=== PATIENT | female | born 1940 | race Caucasian/White ===

== ENCOUNTER 2018-04-15 13:32 | Emergency (ER) | payer MEDICARE, OTHER | END 2018-04-15 16:20 | disposition home or self-care (01) | LOC: FTE 13:32 | DX: E04.1 Nontoxic single thyroid nodule (principal); E11.9 Type 2 diabetes mellitus without complications; I10 Essential (primary) hypertension; Z79.84 Long term (current) use of oral hypoglycemic drugs | CPT/HCPCS: 76536; 99284-25 ==

== ENCOUNTER 2018-10-08 10:42 | Inpatient (IN) | payer MEDICARE, OTHER ==
[2018-10-08] MEDS: SOD CHLORIDE 0.9% 500 ML IV (13:00)
[2018-10-08] MEDS: DEXAMETHASONE 10 MG/ML 1 ML INJ IV (13:00)
[2018-10-08 13:02] LABS: ADD MAN DIFF? NO
[2018-10-08 13:03] LABS: WHITE BLOOD COUNT 15.4 10^3/ul (4.8-10.8)
[2018-10-08 13:03] LABS: ABNORMAL IP MESSAGE 1; BASOPHIL # 0.2 10^3/ul (0.0-0.1); EOSINOPHILS # 3.2 10^3/ul (0.0-0.5); EOSINOPHILS % 20.8 % (0.0-7.0); HEMATOCRIT 33.7 % (37.0-47.0); HEMOGLOBIN 10.4 g/dl (12.0-16.0); LYMPHOCYTES % 6.8 % (15.0-51.0); MEAN CORPUSCULAR HEMOGLOBIN 27.2 pg (29.0-33.0); MEAN CORPUSCULAR HGB CONC 30.9 g/dl (32.0-37.0); MEAN PLATELET VOLUME 10.4 fl (7.4-10.4); MONOCYTE # 0.5 10^3/ul (0.3-0.9); MONOCYTES % 3.1 % (0.0-11.0); NEUTROPHIL # 10.4 10^3/ul (1.6-7.5); NEUTROPHILS % 67.9 % (39.0-77.0); PLATELET COUNT 498 10^3/UL (140-415); RED BLOOD COUNT 3.83 10^6/ul (4.20-5.40); RED CELL DISTRIBUTION WIDTH 14.6 % (11.5-14.5)
[2018-10-08 13:09] LABS: POSITIVE DIFF @See below
[2018-10-08 13:21] LABS: ALANINE AMINOTRANSFERASE 12 IU/L (13-69); ALBUMIN 4.2 g/dl (3.3-4.9); ALBUMIN/GLOBULIN RATIO 1.05; ALKALINE PHOSPHATASE 79 IU/L (42-121); ANION GAP 15 (5-13); ASPARTATE AMINO TRANSFERASE 16 IU/L (15-46); BILIRUBIN,INDIRECT 0.3 mg/dl (0-1.1); BILIRUBIN,TOTAL 0.3 mg/dl (0.2-1.3); BLOOD UREA NITROGEN 29 mg/dl (7-20); CALCIUM 10.5 mg/dl (8.4-10.2); CARBON DIOXIDE 25 mmol/L (21-31); CHLORIDE 101 mmol/L (97-110); CREATININE 1.13 mg/dl (0.44-1.00); GLUCOSE 222 mg/dl (70-220); POTASSIUM 5.2 mmol/L (3.5-5.1); SODIUM 141 mmol/L (135-144); TOTAL PROTEIN 8.2 g/dl (6.1-8.1)
[2018-10-08 13:24] LABS: INR 1.04; PROTIME 13.7 Sec (11.9-14.9); PT RATIO 1.1
[2018-10-08 13:25] LABS: PARTIAL THROMBOPLASTIN TIME 32.1 Sec (23.0-35.0)
[2018-10-08 13:34] LABS: B-TYPE NATRIURETIC PEPTIDE 100 PG/ML (0-450)
[2018-10-08 13:37] LABS: TROPONIN-I 0.207 ng/ml (0.000-0.120)
[2018-10-08 13:38] LABS: FREE THYROXINE INDEX (Calc) 2.96 ug/ml (0.65-3.89); T3 UPTAKE 33.3 % (23.5-40.5); T4 (THYROXINE) 8.9 ug/dl (5.5-11.0)
[2018-10-08] MEDS: ASPIRIN 81 MG TAB PO (14:41)
[2018-10-08] MEDS ORDERED: NACL 0.9% 3 ML SYG IV (16:00)
[2018-10-08] MEDS ORDERED: hydrALAzine 20 MG INJ IV (16:00)
[2018-10-08] MEDS ORDERED: GLUCOSE GEL 15 GRAM TUBE PO ×2 (16:00)
[2018-10-08] MEDS ORDERED: GLUCAGON 1 MG INJ IM (16:00)
[2018-10-08] MEDS ORDERED: DOCUSATE SODIUM 100 MG CAP PO (16:00)
[2018-10-08] MEDS ORDERED: NITROGLYCERIN (SL) 0.4 MG TAB SL (16:00)
[2018-10-08] MEDS ORDERED: MAGNESIUM HYDROXIDE 30ML CUP PO (16:00)
[2018-10-08] MEDS ORDERED: HYDROCODONE/APAP (5/325) TAB PO (16:00)
[2018-10-08] MEDS ORDERED: GLUCOSE GEL 15 GRAM TUBE BUCCAL (16:00)
[2018-10-08] MEDS ORDERED: LORAZEPAM 2 MG INJ IV (16:00)
[2018-10-08] MEDS ORDERED: ALBUTEROL/IPRATROPIUM (NEB) 3 ML AMP HHN (16:00)
[2018-10-08] MEDS ORDERED: morphine 2 MG INJ IV (16:00)
[2018-10-08] MEDS ORDERED: DEXTROSE 50% 50 ML SYRINGE IV ×2 (16:00)
[2018-10-08] MEDS: SOD CHLORIDE 0.45% 1,000 ML IV (16:07)
[2018-10-08 16:19] LABS: FREE T4 (FREE THYROXINE) 1.53 ng/dl (0.85-1.93)
[2018-10-08] MEDS: INSULIN ASPART [NOVOLOG] 3 ML PEN SC ×2 (16:59→21:03)
[2018-10-08 17:10] LABS: LACTIC ACID 0.9 mmol/L (0.5-2.0)
[2018-10-08 17:29] LABS: CREATINE KINASE 25 IU/L (23-200)
[2018-10-08 17:42] LABS: CK INDEX 6.6; CK-MB 1.65 ng/ml (0.0-2.4)
[2018-10-08] MEDS: ENOXAPARIN 80 MG/0.8 ML SYG SC (18:52)
[2018-10-08] MEDS: ATORVASTATIN 80 MG TAB PO (19:30)
[2018-10-08] MEDS ORDERED: EPINEPHrine 10 MCG/1ml (10 ML SYG) IV (20:00)
[2018-10-08] MEDS ORDERED: ATROPINE 1 MG/10 ML SYRINGE (20:00)
[2018-10-08] MEDS: CALCIUM CARBONATE 1.25 GM TAB PO (20:55)
[2018-10-08] MEDS ORDERED: HEPARIN 5,000 UNIT/1 ML VIAL SC (21:00)
[2018-10-08] MEDS ORDERED: ATORVASTATIN 10 MG TAB PO (21:00)
[2018-10-08 23:08] LABS: CREATINE KINASE 24 IU/L (23-200)
[2018-10-08 23:18] LABS: CK INDEX 7.8; CK-MB 1.86 ng/ml (0.0-2.4)
[2018-10-08 23:24] LABS: TROPONIN-I 0.339 ng/ml (0.000-0.120)
[2018-10-09] MEDS: INSULIN ASPART [NOVOLOG] 3 ML PEN SC ×6 (01:57→20:04)
[2018-10-09] MEDS ORDERED: ACCU-CHEK XX (02:00)
[2018-10-09] MEDS: SOD CHLORIDE 0.45% 1,000 ML IV ×2 (05:26→18:13)
[2018-10-09 06:43] LABS: ADD MAN DIFF? NO
[2018-10-09 06:51] LABS: WHITE BLOOD COUNT 11.5 10^3/ul (4.8-10.8)
[2018-10-09 06:51] LABS: BASOPHILS % 0.3 % (0.0-2.0); EOSINOPHILS % 0.2 % (0.0-7.0); HEMOGLOBIN 9.3 g/dl (12.0-16.0); LYMPHOCYTES # 1.1 10^3/ul (0.8-2.9); LYMPHOCYTES % 9.5 % (15.0-51.0); MEAN CORPUSCULAR HEMOGLOBIN 27.5 pg (29.0-33.0); MEAN CORPUSCULAR VOLUME 88.8 fl (82.0-101.0); MEAN PLATELET VOLUME 10.5 fl (7.4-10.4); MONOCYTE # 0.6 10^3/ul (0.3-0.9); NEUTROPHIL # 9.7 10^3/ul (1.6-7.5); NEUTROPHILS % 84.3 % (39.0-77.0); PLATELET COUNT 464 10^3/UL (140-415); RED BLOOD COUNT 3.38 10^6/ul (4.20-5.40); RED CELL DISTRIBUTION WIDTH 14.5 % (11.5-14.5)
[2018-10-09 07:13] LABS: CREATINE KINASE 20 IU/L (23-200)
[2018-10-09 07:14] LABS: CHOLESTEROL 162 mg/dl (100-200)
[2018-10-09 07:14] LABS: CHOL/HDL RATIO 5.7 RATIO; HDL CHOLESTEROL 28 mg/dl (33-92); LDL CHOLESTEROL,CALCULATED 93 mg/dl; TRIGLYCERIDES 206 mg/dl (0-149)
[2018-10-09 07:16] LABS: ANION GAP 12 (5-13); BLOOD UREA NITROGEN 33 mg/dl (7-20); CALCIUM 9.8 mg/dl (8.4-10.2); CARBON DIOXIDE 24 mmol/L (21-31); CHLORIDE 105 mmol/L (97-110); CREATININE 0.88 mg/dl (0.44-1.00); GLUCOSE 135 mg/dl (70-220); MAGNESIUM 1.5 mg/dl (1.7-2.5); PHOSPHORUS 4.8 mg/dl (2.5-4.9); SODIUM 141 mmol/L (135-144)
[2018-10-09 07:25] LABS: CK INDEX 7.3; CK-MB 1.45 ng/ml (0.0-2.4); TROPONIN-I 0.209 ng/ml (0.000-0.120)
[2018-10-09 07:45] LABS: THYROID STIMULATING HORMONE 0.884 MIU/L (0.465-4.680)
[2018-10-09] MEDS: ENOXAPARIN 80 MG/0.8 ML SYG SC ×2 (08:47→20:14)
[2018-10-09] MEDS: FAMOTIDINE 20 MG TAB PO (08:49)
[2018-10-09] MEDS: ASPIRIN (EC) 325 MG TAB PO (08:49)
[2018-10-09] MEDS: CALCIUM CARBONATE 1.25 GM TAB PO ×2 (08:49→20:05)
[2018-10-09] MEDS: AMLODIPINE 10 MG TAB PO (08:49)
[2018-10-09] MEDS: MAGNESIUM SULFATE 2 GM/50 ML 50 ML IVPB (13:37)
[2018-10-09 14:26] LABS: IRON 27 ug/dl (35-150)
[2018-10-09 14:35] LABS: % IRON SATURATION 10 % SAT (22-52); TOTAL IRON BINDING CAPACITY 278 ug/dl (241-421)
[2018-10-09] MEDS: REGADENOSON 0.4 MG/5 ML SYG (17:00)
[2018-10-09] MEDS: ATORVASTATIN 80 MG TAB PO (20:04)
[2018-10-09 20:12] LABS: HEPATITIS C VIRAL ANTIBODY NEGATIVE (NEGATIVE)
[2018-10-10] MEDS: INSULIN ASPART [NOVOLOG] 3 ML PEN SC ×6 (00:10→20:52)
[2018-10-10] MEDS: SOD CHLORIDE 0.45% 1,000 ML IV (00:13)
[2018-10-10 06:47] LABS: ADD MAN DIFF? NO
[2018-10-10 06:51] LABS: WHITE BLOOD COUNT 11.6 10^3/ul (4.8-10.8)
[2018-10-10 06:51] LABS: ABNORMAL IP MESSAGE 1; BASOPHIL # 0.1 10^3/ul (0.0-0.1); BASOPHILS % 0.7 % (0.0-2.0); EOSINOPHILS # 2.3 10^3/ul (0.0-0.5); HEMATOCRIT 30.2 % (37.0-47.0); HEMOGLOBIN 9.4 g/dl (12.0-16.0); LYMPHOCYTES # 1.1 10^3/ul (0.8-2.9); LYMPHOCYTES % 9.1 % (15.0-51.0); MEAN CORPUSCULAR HEMOGLOBIN 27.3 pg (29.0-33.0); MEAN CORPUSCULAR HGB CONC 31.1 g/dl (32.0-37.0); MEAN CORPUSCULAR VOLUME 87.8 fl (82.0-101.0); MEAN PLATELET VOLUME 10.5 fl (7.4-10.4); MONOCYTE # 0.6 10^3/ul (0.3-0.9); MONOCYTES % 5.2 % (0.0-11.0); NEUTROPHIL # 7.5 10^3/ul (1.6-7.5); NEUTROPHILS % 64.7 % (39.0-77.0); PLATELET COUNT 466 10^3/UL (140-415); RED BLOOD COUNT 3.44 10^6/ul (4.20-5.40); RED CELL DISTRIBUTION WIDTH 14.5 % (11.5-14.5)
[2018-10-10 06:52] LABS: POSITIVE DIFF @See below
[2018-10-10 07:16] LABS: ANION GAP 10 (5-13); BLOOD UREA NITROGEN 24 mg/dl (7-20); CALCIUM 9.8 mg/dl (8.4-10.2); CARBON DIOXIDE 24 mmol/L (21-31); CHLORIDE 103 mmol/L (97-110); CREATININE 0.84 mg/dl (0.44-1.00); GLUCOSE 155 mg/dl (70-220); POTASSIUM 3.9 mmol/L (3.5-5.1); SODIUM 137 mmol/L (135-144)
[2018-10-10] MEDS: ASPIRIN (EC) 325 MG TAB PO (08:30)
[2018-10-10] MEDS: FAMOTIDINE 20 MG TAB PO (08:31)
[2018-10-10] MEDS: AMLODIPINE 10 MG TAB PO (08:31)
[2018-10-10] MEDS: ONDANSETRON 4 MG INJ IV (08:31)
[2018-10-10] MEDS: CALCIUM CARBONATE 1.25 GM TAB PO ×2 (08:32→20:39)
[2018-10-10] MEDS: ENOXAPARIN 80 MG/0.8 ML SYG SC (09:45)
[2018-10-10] MEDS: ACETAMINOPHEN 325 MG TAB PO (14:11)
[2018-10-10] MEDS: INSULIN GLARGINE [LANTus] (100 UNITS/ML) SYG SC (14:52)
[2018-10-10] MEDS: NORepinephrine 8MG/250 ML (PMX 250 ML IV (16:00)
[2018-10-10] MEDS ORDERED: NORepinephrine 8MG/250 ML (PMX 250 ML IV (16:00)
[2018-10-10] MEDS ORDERED: NORepinephrine 8MG/250 ML (PMX 250 ML (16:12)
[2018-10-10 17:05] LABS: AADO2 Arterial 424.4 mmHg (7.0-24.0); Arterial Base Excess -5.6 mmol/L (-3.0-3); Arterial Blood Gas Oxygen Sat 99.2 mmHG (95.0-100.0); Arterial COHb 0.3 % (0.0-3.0); Arterial Fraction of Oxyhgb 98.8 % (93.0-99.0); Arterial HCO3 20.6 mmol/L (22.0-26.0); Arterial MetHb 0.1 % (0.0-1.5); Arterial pCO2 42.9 mmhg (35-45); MODE VENT - AC; Site Right Brachial
[2018-10-10] MEDS: SOD CHLORIDE 0.9% 1,000 ML IV (17:14)
[2018-10-10 17:23] LABS: ADD UMIC YES; UR ASCORBIC ACID NEGATIVE (NEGATIVE); UR BACTERIA FEW /HPF (NONE SEEN); UR BILIRUBIN (Dip) NEGATIVE (NEGATIVE); UR BLOOD (Dip) 1+ mg/dL (NEGATIVE); UR CLARITY SLIGHTLY CLOUDY (CLEAR); UR COLOR YELLOW (YELLOW); UR GLUCOSE (Dip) 3+ mg/dL (NEGATIVE); UR KETONES (Dip) 1+ mg/dL (NEGATIVE); UR LEUKOCYTE ESTERASE (Dip) TRACE Leu/ul (NEGATIVE); UR NITRITE (Dip) NEGATIVE (NEGATIVE); UR RBC 4 /HPF (0-5); UR SQUAMOUS EPITHELIAL CELL FEW /HPF (FEW); UR TOTAL PROTEIN (Dip) 1+ mg/dl (NEGATIVE); UR UROBILINOGEN (Dip) NEGATIVE (NEGATIVE); UR WBC 11 /HPF (0-5)
[2018-10-10 17:31] LABS: PHOSPHORUS 5.9 mg/dl (2.5-4.9)
[2018-10-10 17:31] LABS: CREATINE KINASE 38 IU/L (23-200)
[2018-10-10 17:40] LABS: CK INDEX 1.6
[2018-10-10 17:44] LABS: TROPONIN-I 0.038 ng/ml (0.000-0.120)
[2018-10-10 18:14] LABS: ANION GAP 14 (5-13); BLOOD UREA NITROGEN 21 mg/dl (7-20); CALCIUM 7.9 mg/dl (8.4-10.2); CARBON DIOXIDE 17 mmol/L (21-31); CHLORIDE 108 mmol/L (97-110); GLUCOSE 300 mg/dl (70-220); POTASSIUM 3.8 mmol/L (3.5-5.1); SODIUM 139 mmol/L (135-144)
[2018-10-10] MEDS: ATROPINE 1 MG/10 ML SYRINGE IV (18:34)
[2018-10-10] MEDS: DOCUSATE SODIUM 100 MG CAP PO (20:39)
[2018-10-10] MEDS: ATORVASTATIN 40 MG TAB PO (20:39)
[2018-10-11 00:04] LABS: CREATINE KINASE 36 IU/L (23-200)
[2018-10-11 00:14] LABS: CK INDEX 3.3; CK-MB 1.19 ng/ml (0.0-2.4)
[2018-10-11] MEDS: INSULIN ASPART [NOVOLOG] 3 ML PEN SC ×6 (01:52→21:29)
[2018-10-11] MEDS: NORepinephrine 8MG/250 ML (PMX 250 ML IV ×3 (04:31→21:06)
[2018-10-11 05:11] LABS: ADD MAN DIFF? NO
[2018-10-11 05:20] LABS: BASOPHILS % 0.2 % (0.0-2.0); EOSINOPHILS # 0.1 10^3/ul (0.0-0.5); EOSINOPHILS % 0.4 % (0.0-7.0); HEMATOCRIT 28.7 % (37.0-47.0); HEMOGLOBIN 8.8 g/dl (12.0-16.0); LYMPHOCYTES % 7.3 % (15.0-51.0); MEAN CORPUSCULAR HEMOGLOBIN 27.2 pg (29.0-33.0); MEAN CORPUSCULAR HGB CONC 30.7 g/dl (32.0-37.0); MEAN CORPUSCULAR VOLUME 88.6 fl (82.0-101.0); MEAN PLATELET VOLUME 10.7 fl (7.4-10.4); MONOCYTE # 0.5 10^3/ul (0.3-0.9); MONOCYTES % 3.6 % (0.0-11.0); NEUTROPHIL # 11.7 10^3/ul (1.6-7.5); NEUTROPHILS % 88.1 % (39.0-77.0); PLATELET COUNT 577 10^3/UL (140-415); RED BLOOD COUNT 3.24 10^6/ul (4.20-5.40); RED CELL DISTRIBUTION WIDTH 14.3 % (11.5-14.5)
[2018-10-11 05:20] LABS: WHITE BLOOD COUNT 13.2 10^3/ul (4.8-10.8)
[2018-10-11 05:38] LABS: ANION GAP 14 (5-13); BLOOD UREA NITROGEN 33 mg/dl (7-20); CALCIUM 9.5 mg/dl (8.4-10.2); CARBON DIOXIDE 23 mmol/L (21-31); CHLORIDE 103 mmol/L (97-110); CREATININE 1.53 mg/dl (0.44-1.00); GLUCOSE 194 mg/dl (70-220); POTASSIUM 4.5 mmol/L (3.5-5.1); SODIUM 140 mmol/L (135-144)
[2018-10-11] MEDS: SOD CHLORIDE 0.9% 1,000 ML IV (05:45)
[2018-10-11 05:46] LABS: MAGNESIUM 1.6 mg/dl (1.7-2.5)
[2018-10-11 05:47] LABS: CREATINE KINASE 77 IU/L (23-200)
[2018-10-11 05:50] LABS: CK INDEX 1.9; CK-MB 1.44 ng/ml (0.0-2.4)
[2018-10-11] MEDS: LACTATED RINGER'S 500 ML IV (07:00)
[2018-10-11 07:31] LABS: AADO2 Arterial 282.5 mmHg (7.0-24.0); Allen Test ACCEPTAB; Arterial Base Excess -3.6 mmol/L (-3.0-3); Arterial COHb 0.3 % (0.0-3.0); Arterial Fraction of Oxyhgb 96.5 % (93.0-99.0); Arterial HCO3 21.2 mmol/L (22.0-26.0); Arterial MetHb 0.2 % (0.0-1.5); Arterial pCO2 37.6 mmhg (35-45); MODE VENT - AC; Site Right Radial
[2018-10-11] MEDS: INSULIN GLARGINE [LANTus] (100 UNITS/ML) SYG SC (08:00)
[2018-10-11] MEDS: CALCIUM CARBONATE 1.25 GM TAB PO ×2 (08:11→20:59)
[2018-10-11] MEDS: DOCUSATE SODIUM 100 MG CAP PO ×2 (08:11→20:59)
[2018-10-11] MEDS: AMLODIPINE 10 MG TAB PO (08:11)
[2018-10-11] MEDS: ENOXAPARIN 80 MG/0.8 ML SYG SC (08:14)
[2018-10-11] MEDS: FAMOTIDINE 20 MG TAB PO (08:15)
[2018-10-11] MEDS: ASPIRIN (EC) 325 MG TAB PO (08:15)
[2018-10-11] MEDS: HYDROCORTISONE 100 MG INJ IV ×3 (12:00→21:26)
[2018-10-11] MEDS: MAGNESIUM SULFATE 2 GM/50 ML 50 ML IVPB (12:01)
[2018-10-11] MEDS: NPH, HUMAN INSULIN ISOPHANE 3ML VIAL SC ×3 (12:29→21:29)
[2018-10-11 12:46] LABS: THYROID MICROSOMAL ANTIBODY <1 IU/mL (<9)
[2018-10-11] MEDS: SOD FERRIC GLUC COMPLX 125 MG in SOD CHLORIDE 0.9% 100 ML IVPB (15:00)
[2018-10-11] MEDS ORDERED: ACETAMINOPHEN 325 MG TAB GTB (16:00)
[2018-10-11] MEDS: ACETAMINOPHEN 650MG/20.3ML CUP GTB ×2 (16:14→21:35)
[2018-10-11] MEDS: SOD CHLORIDE 0.45% 1,000 ML IV (17:04)
[2018-10-11] MEDS: ATORVASTATIN 40 MG TAB PO (20:59)
[2018-10-11 21:40] LABS: LACTIC ACID 1.2 mmol/L (0.5-2.0)
[2018-10-11 21:46] LABS: SODIUM,URINE RANDOM < 13 mmol/L (30-90)
[2018-10-11 21:47] LABS: CREATININE,URINE RANDOM 100.59 mg/dl (20-320); PROTEIN/CREAT RATIO 0.31 RATIO
[2018-10-12] MEDS: INSULIN ASPART [NOVOLOG] 3 ML PEN SC ×6 (00:43→20:33)
[2018-10-12] MEDS: SOD CHLORIDE 0.9% 100 ML (01:42)
[2018-10-12] MEDS: IOHEXOL 300MG/ML 150 ML BTL (01:42)
[2018-10-12 05:10] LABS: ADD MAN DIFF? NO
[2018-10-12 05:15] LABS: BASOPHILS % 0.2 % (0.0-2.0); EOSINOPHILS % 0.1 % (0.0-7.0); HEMATOCRIT 23.3 % (37.0-47.0); HEMOGLOBIN 7.1 g/dl (12.0-16.0); LYMPHOCYTES # 1.5 10^3/ul (0.8-2.9); LYMPHOCYTES % 11.5 % (15.0-51.0); MEAN CORPUSCULAR HEMOGLOBIN 27.3 pg (29.0-33.0); MEAN CORPUSCULAR HGB CONC 30.5 g/dl (32.0-37.0); MEAN CORPUSCULAR VOLUME 89.6 fl (82.0-101.0); MEAN PLATELET VOLUME 10.7 fl (7.4-10.4); MONOCYTE # 0.8 10^3/ul (0.3-0.9); MONOCYTES % 6.3 % (0.0-11.0); NEUTROPHIL # 10.4 10^3/ul (1.6-7.5); NEUTROPHILS % 81.7 % (39.0-77.0); PLATELET COUNT 396 10^3/UL (140-415); RED CELL DISTRIBUTION WIDTH 14.8 % (11.5-14.5)
[2018-10-12 05:15] LABS: WHITE BLOOD COUNT 12.7 10^3/ul (4.8-10.8)
[2018-10-12 05:36] LABS: MAGNESIUM 2.5 mg/dl (1.7-2.5)
[2018-10-12 05:48] LABS: ANION GAP 14 (5-13); BLOOD UREA NITROGEN 29 mg/dl (7-20); CALCIUM 8.9 mg/dl (8.4-10.2); CARBON DIOXIDE 18 mmol/L (21-31); CHLORIDE 112 mmol/L (97-110); CREATININE 1.44 mg/dl (0.44-1.00); GLUCOSE 240 mg/dl (70-220); POTASSIUM 3.8 mmol/L (3.5-5.1); SODIUM 144 mmol/L (135-144)
[2018-10-12 05:49] LABS: URIC ACID 7.6 mg/dl (3.1-7.9)
[2018-10-12 05:49] LABS: CREATINE KINASE 1521 IU/L (23-200)
[2018-10-12] MEDS: SOD CHLORIDE 0.45% 1,000 ML IV ×3 (06:27→22:26)
[2018-10-12] MEDS: HYDROCORTISONE 100 MG INJ IV ×3 (06:27→21:48)
[2018-10-12] MEDS: NPH, HUMAN INSULIN ISOPHANE 3ML VIAL SC ×3 (06:34→22:06)
[2018-10-12] MEDS: NORepinephrine 8MG/250 ML (PMX 250 ML IV ×2 (06:34→18:20)
[2018-10-12] MEDS: DOCUSATE SODIUM 100 MG CAP PO ×2 (09:18→20:19)
[2018-10-12] MEDS: CALCIUM CARBONATE 1.25 GM TAB PO ×2 (09:18→20:19)
[2018-10-12] MEDS: FAMOTIDINE 20 MG TAB PO (09:18)
[2018-10-12] MEDS: AMLODIPINE 10 MG TAB PO (09:18)
[2018-10-12] MEDS: SOD FERRIC GLUC COMPLX 125 MG in SOD CHLORIDE 0.9% 100 ML IVPB (12:04)
[2018-10-12] MEDS: INSULIN GLARGINE [LANTus] (100 UNITS/ML) SYG SC (12:07)
[2018-10-12 12:08] LABS: ADD MAN DIFF? NO
[2018-10-12 12:19] LABS: WHITE BLOOD COUNT 14.1 10^3/ul (4.8-10.8)
[2018-10-12 12:19] LABS: ABNORMAL IP MESSAGE 1; BASOPHILS % 0.1 % (0.0-2.0); EOSINOPHILS % 0.1 % (0.0-7.0); HEMATOCRIT 22.9 % (37.0-47.0); LYMPHOCYTES # 0.9 10^3/ul (0.8-2.9); LYMPHOCYTES % 6.5 % (15.0-51.0); MEAN CORPUSCULAR HGB CONC 30.1 g/dl (32.0-37.0); MEAN CORPUSCULAR VOLUME 89.5 fl (82.0-101.0); MEAN PLATELET VOLUME 10.9 fl (7.4-10.4); MONOCYTE # 0.6 10^3/ul (0.3-0.9); MONOCYTES % 4.3 % (0.0-11.0); NEUTROPHIL # 12.5 10^3/ul (1.6-7.5); NEUTROPHILS % 88.5 % (39.0-77.0); PLATELET COUNT 385 10^3/UL (140-415); RED BLOOD COUNT 2.56 10^6/ul (4.20-5.40); RED CELL DISTRIBUTION WIDTH 15.2 % (11.5-14.5)
[2018-10-12 12:24] LABS: HEMOGLOBIN 6.9 g/dl (12.0-16.0)
[2018-10-12] MEDS: ATORVASTATIN 40 MG TAB PO (20:19)
[2018-10-13] MEDS: INSULIN ASPART [NOVOLOG] 3 ML PEN SC ×6 (01:33→21:14)
[2018-10-13] MEDS: NORepinephrine 8MG/250 ML (PMX 250 ML IV (04:04)
[2018-10-13 05:02] LABS: ADD MAN DIFF? NO
[2018-10-13 05:12] LABS: ABNORMAL IP MESSAGE 1; BASOPHILS % 0.2 % (0.0-2.0); EOSINOPHILS % 0.2 % (0.0-7.0); HEMATOCRIT 22.4 % (37.0-47.0); LYMPHOCYTES # 0.8 10^3/ul (0.8-2.9); LYMPHOCYTES % 6.3 % (15.0-51.0); MEAN CORPUSCULAR HEMOGLOBIN 27.2 pg (29.0-33.0); MEAN CORPUSCULAR VOLUME 93.7 fl (82.0-101.0); MEAN PLATELET VOLUME 10.9 fl (7.4-10.4); MONOCYTE # 0.9 10^3/ul (0.3-0.9); MONOCYTES % 6.4 % (0.0-11.0); NEUTROPHIL # 11.4 10^3/ul (1.6-7.5); NEUTROPHILS % 86.2 % (39.0-77.0); PLATELET COUNT 347 10^3/UL (140-415); RED BLOOD COUNT 2.39 10^6/ul (4.20-5.40); RED CELL DISTRIBUTION WIDTH 15.3 % (11.5-14.5)
[2018-10-13 05:12] LABS: WHITE BLOOD COUNT 13.3 10^3/ul (4.8-10.8)
[2018-10-13 05:27] LABS: POSITIVE DIFF @See below
[2018-10-13 05:30] LABS: HEMOGLOBIN 6.5 g/dl (12.0-16.0)
[2018-10-13 05:34] LABS: ANION GAP 17 (5-13); BLOOD UREA NITROGEN 34 mg/dl (7-20); CALCIUM 8.6 mg/dl (8.4-10.2); CARBON DIOXIDE 14 mmol/L (21-31); CHLORIDE 112 mmol/L (97-110); CREATININE 1.53 mg/dl (0.44-1.00); GLUCOSE 271 mg/dl (70-220); POTASSIUM 4.3 mmol/L (3.5-5.1); SODIUM 143 mmol/L (135-144)
[2018-10-13] MEDS: HYDROCORTISONE 100 MG INJ IV (05:35)
[2018-10-13] MEDS: NPH, HUMAN INSULIN ISOPHANE 3ML VIAL SC (05:36)
[2018-10-13] MEDS: DOCUSATE SODIUM 100 MG CAP PO ×2 (08:49→21:02)
[2018-10-13] MEDS: CALCIUM CARBONATE 1.25 GM TAB PO ×2 (08:54→21:02)
[2018-10-13] MEDS: FAMOTIDINE 20 MG TAB PO (08:54)
[2018-10-13] MEDS: AMLODIPINE 10 MG TAB PO (08:55)
[2018-10-13] MEDS: INSULIN GLARGINE [LANTus] (100 UNITS/ML) SYG SC (08:59)
[2018-10-13] MEDS: SOD FERRIC GLUC COMPLX 125 MG in SOD CHLORIDE 0.9% 100 ML IVPB (17:26)
[2018-10-13] MEDS: LACTATED RINGER'S 1,000 ML IV (18:39)
[2018-10-13] MEDS: ATORVASTATIN 40 MG TAB PO (21:02)
[2018-10-14] MEDS: LACTATED RINGER'S 1,000 ML IV (00:20)
[2018-10-14] MEDS: INSULIN ASPART [NOVOLOG] 3 ML PEN SC ×2 (01:31→05:53)
[2018-10-14] MEDS ORDERED: PHENYLephrine 20MG IN 250 ML 250 ML (02:02)
[2018-10-14] MEDS: PHENYLephrine 20MG IN 250 ML 250 ML IV ×3 (02:12→05:55)
[2018-10-14] MEDS: VASOPRESSIN 60 UNIT in DEXTROSE 5% 57 ML IV (04:59)
[2018-10-14 05:19] LABS: WHITE BLOOD COUNT 5.5 10^3/ul (4.8-10.8)
[2018-10-14 05:19] LABS: ABNORMAL IP MESSAGE 1; HEMATOCRIT 22.8 % (37.0-47.0); MEAN CORPUSCULAR HEMOGLOBIN 27.5 pg (29.0-33.0); MEAN CORPUSCULAR HGB CONC 29.8 g/dl (32.0-37.0); MEAN CORPUSCULAR VOLUME 92.3 fl (82.0-101.0); MEAN PLATELET VOLUME 10.9 fl (7.4-10.4); NUCLEATED RED BLOOD CELLS% 1.1 /100WBC (0.0-0.0); PLATELET COUNT 391 10^3/UL (140-415); RED BLOOD COUNT 2.47 10^6/ul (4.20-5.40); RED CELL DISTRIBUTION WIDTH 15.5 % (11.5-14.5)
[2018-10-14 05:32] LABS: ADD MAN DIFF? YES; HEMOGLOBIN 6.8 g/dl (12.0-16.0); POSITIVE DIFF @See below
[2018-10-14 05:42] LABS: ANION GAP 9 (5-13); BLOOD UREA NITROGEN 48 mg/dl (7-20); CALCIUM 8.3 mg/dl (8.4-10.2); CARBON DIOXIDE 18 mmol/L (21-31); CHLORIDE 112 mmol/L (97-110); CREATININE 2.55 mg/dl (0.44-1.00); GLUCOSE 266 mg/dl (70-220); POTASSIUM 3.3 mmol/L (3.5-5.1); SODIUM 139 mmol/L (135-144)
[2018-10-14 10:36] LABS: BAND NEUTROPHILS #M 1.7 10^3/ul (0.0-0.6); BAND NEUTROPHILS % (M) 31 % (0-4); BURR CELLS 2+ (0-0); EOSINOPHILS % (M) 28 % (0-7); ERYTHROBLAST% (NRBC) (M) 2 % (0-0); GIANT THROMBO% (M) 1 % (0-0); LYMPHOCYTES % (M) 19 % (15-51); METAMYELOCYTES #M 0.1 10^3/ul (0.0-0.0); METAMYELOCYTES %M 2 % (0-0); MONOCYTE #M 0.2 10^3/ul (0.3-0.9); MONOCYTES % (M) 5 % (0-11); PLATELET ESTIMATE NORMAL; POIKILOCYTOSIS 2+ (0-0); POLYCHROMASIA 1+ (0-0); SEG NEUT #M 0.9 10^3/ul (1.6-7.5); SEGMENTED NEUTROPHILS (M) % 15 % (39-77); SMUDGE%M 88 % (0-0)
== END 2018-10-14 06:08 | disposition expired ==
LOC: ICU 10-10 15:51 → E/R 10:42 → TEL 14:50
PROC: 0CJS8ZZ Inspection of Larynx, Via Natural or Artificial Opening Endoscopic (ICD-10-PCS; 2018-10-09)
PROC: 06HY33Z Insertion of Infusion Device into Lower Vein, Percutaneous Approach (ICD-10-PCS; principal; 2018-10-10)
PROC: 0BH18EZ Insertion of Endotracheal Airway into Trachea, Via Natural or Artificial Opening Endoscopic (ICD-10-PCS; 2018-10-10)
PROC: 5A1945Z Respiratory Ventilation, 24-96 Consecutive Hours (ICD-10-PCS; 2018-10-10)
PROC: 5A12012 Performance of Cardiac Output, Single, Manual (ICD-10-PCS; 2018-10-10)
DX: I21.A1 Myocardial infarction type 2 (principal); N17.0 Acute kidney failure with tubular necrosis; J96.01 Acute respiratory failure with hypoxia; J96.02 Acute respiratory failure with hypercapnia; G93.5 Compression of brain; G93.6 Cerebral edema; I61.4 Nontraumatic intracerebral hemorrhage in cerebellum; I61.5 Nontraumatic intracerebral hemorrhage, intraventricular; I60.9 Nontraumatic subarachnoid hemorrhage, unspecified; M62.82 Rhabdomyolysis; G91.9 Hydrocephalus, unspecified; I46.9 Cardiac arrest, cause unspecified; E11.9 Type 2 diabetes mellitus without complications; I10 Essential (primary) hypertension; D50.9 Iron deficiency anemia, unspecified; M81.0 Age-related osteoporosis without current pathological fracture; C73 Malignant neoplasm of thyroid gland; E78.2 Mixed hyperlipidemia; Z66 Do not resuscitate
CPT/HCPCS: 31500; 36415; 36600; 70450; 70490; 71045; 71250; 76536; 78452; 80048; 80053; 80061; 81001; 81003; 82550; 82553; 82570; 82803; 82962; 83036; 83540; 83605; 83735; 83880; 84100; 84300; 84436; 84439; 84443; 84479; 84484; 84560; 85025; 85610; 85730; 86376; 86803; 87040-91; 87081; 89190; 92526; 92610; 92950; 93005; 93017; 93306; 93970; 94002; 94003; 94770; 96374; 99285-25